=== PATIENT | female | born 1950 | race African-American/Black ===

== ENCOUNTER 2025-03-05 14:59 | Emergency (ER) | payer OTHER, MEDICAID ==
[~2025-03-05] VITALS: Ht 167.6 cm; Wt 59.0 kg
[2025-03-05 15:03] VITALS: O2SAT 98
[2025-03-05 16:44] VITALS: BP 151/87; PULSE 78; RESP 16; TEMP 36.7; O2SAT 100
[2025-03-05] MEDS: ACETAMINOPHEN 500MG TABLET PO ONE (16:44)
[2025-03-05] MEDS ORDERED: ACET-2708 MT (16:54)
== END 2025-03-05 17:26 | disposition home or self-care (01) ==
LOC: ER 14:59
DX: M17.11 Unilateral primary osteoarthritis, right knee (principal); I10 Essential (primary) hypertension; W18.09XA Striking against other object with subsequent fall, initial encounter; Y93.89 Activity, other specified; Y92.59 Other trade areas as the place of occurrence of the external cause; Y99.8 Other external cause status
CPT/HCPCS: 99284; 73562; 73590; A6449